=== PATIENT | male | born 1985 | race Caucasian/White ===

== ENCOUNTER 2022-03-24 15:43 | Emergency (ER) | payer OTHER | END 2022-03-24 22:52 | disposition E | LOC: ER1 15:43 | DX: I46.9 Cardiac arrest, cause unspecified (principal); V03.10XA Pedestrian on foot injured in collision with car, pick-up truck or van in traffic accident, initial encounter; Y92.410 Unspecified street and highway as the place of occurrence of the external cause | CPT/HCPCS: 31500; 32551; 86900; 86901; 92950; 94002; 99285; J0171; J0282; J0330; J0461; P9016 ==